=== PATIENT | male | born 1990 | race Caucasian/White ===

== ENCOUNTER 2022-10-25 07:28 | Outpatient (CLI) | payer BC | END 2022-10-25 07:29 | disposition home or self-care (01) | LOC: BICCT 07:28 | PROVIDERS: ATTEND Otolaryngology Plastic Surgery within the Head & Neck | DX: H93.8X2 Other specified disorders of left ear (principal); H73.892 Other specified disorders of tympanic membrane, left ear; H61.891 Other specified disorders of right external ear | CPT/HCPCS: 70480 ==